=== PATIENT | male | born 1980 | race American Indian/Alaskan Native ===

== ENCOUNTER 2016-11-14 10:24 | Emergency (ER) | payer MEDICAID ==
[2016-11-14] MEDS ORDERED: DUONEB *Not for PRN Use IH ONE ×2 (10:37→12:40)
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
[2016-11-14 11:02] LABS: Basophils % (Auto) 0.5 % (0.0-1.8); Eosinophils % (Auto) 4.2 % (0.0-4.3); Hematocrit 45.1 % (35.5-45.6); Mean Corpuscular HGB Conc 33 % (32-34); Mean Corpuscular Hemoglobin 31 pg (28-32); Mean Corpuscular Volume 92 fl (84-94); Platelet Count 251 K/mm3 (140-440); Red Blood Count 4.92 M/mm3 (3.65-5.03); Red Cell Distribution Width 14.2 % (13.2-15.2); White Blood Count 7.9 K/mm3 (4.5-11.0)
[2016-11-14 11:09] LABS: INR 0.95 (0.87-1.13)
[2016-11-14 11:10] LABS: Partial Thromboplastin Time 28.2 Sec. (24.2-36.6)
[2016-11-14 11:18] LABS: Creatine Kinase MB 1.8 ng/mL (0.0-4.0)
[2016-11-14 11:20] LABS: Alanine Aminotransferase 22 units/L (7-56); Albumin 3.8 g/dL (3.9-5); Alkaline Phosphatase 75 units/L (35-129); Anion Gap 17 mmol/L; Blood Urea Nitrogen 9 mg/dL (9-20); Calcium 8.7 mg/dL (8.4-10.2); Carbon Dioxide 24 mmol/L (22-30); Chloride 106.6 mmol/L (98-107); Creatine Kinase 191 units/L (55-170); Glucose 105 mg/dL (75-100); Potassium 4.3 mmol/L (3.6-5.0); Sodium 143 mmol/L (137-145); Total Protein 7.6 g/dL (6.3-8.2)
--- NOTE | 2016-11-14 12:06 | XRay Report ---
ROUTINE CHEST, TWO VIEWS: Dyspnea. PA and lateral views demonstrate the heart and mediastinal contour to be of normal size and shape. The lungs are clear and fully expanded and the soft tissues and bony structures are normal. IMPRESSION: Normal study.
[2016-11-14] MEDS ORDERED: DECADRON IM ONE (12:40)
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
[2016-11-14 14:55] VITALS: BP 119/87
== END 2016-11-14 14:56 | disposition home or self-care (01) ==
LOC: ED 10:24
DX: J45.901 Unspecified asthma with (acute) exacerbation (principal); Z87.891 Personal history of nicotine dependence
CPT/HCPCS: 36415; 71020; 80053; 82550; 82553; 84484; 85025; 85610; 85730; 93005; 93010; 94640; 96372; 99284; J1100